=== PATIENT | female | born 1975 | race Caucasian/White ===

== ENCOUNTER 2016-11-01 00:35 | Observation (INO) ==
[2016-11-01] MEDS ORDERED: Aspirin 81 MG TAB.CHEW PO ONE (01:12)
[2016-11-01] MEDS ORDERED: Ondansetron 4 MG/2 ML VIAL IVP ONE (01:12)
[2016-11-01] MEDS ORDERED: 0.9 % Sodium Chloride 500 ML IVC ONE (01:12)
[2016-11-01] MEDS ORDERED: *HR* Morphine 2 MG/ML SYRINGE IVP ONE (01:12)
--- NOTE | 2016-11-01 01:14 | Emergency Department Note ---
Disposition Clinical Impression: Chest pain Qualifiers: Chest pain type: precordial pain Qualified Code(s): R07.2 - Precordial pain Disposition: Admitted As Inpatient Condition: Fair Referrals: Unassigned,Provider [Primary Care Provider] - Forms: ED Satisfaction Letter Chest Pain HPI - General Chief Complaint: ED Chest Pain Stated Complaint: chest pain/back pain Time Seen by Provider: 11/01/16 00:52 Source: patient, family Mode of arrival: private vehicle Limitations: no limitations Vital Signs Reviewed: Yes Nursing Notes Reviewed: Yes - History of Present Illness Pt complaint: chest pain Onset (ago): day(s) (4) Duration: intermittent Onset: during rest Pain Location: substernal Severity: moderate Severity scale (1-10): 4 Quality: heaviness Pain Radiation: back (upper) Improves with: nothing Worsens with: other (certain positions make back hurt more, but nothing makes chest pain worse) Context: other (intermittent chest heaviness since . This evening pain was worse and radiated into upper back. had trouble getting to sleep, then pain in chest woke her up. Fam hx of CAD / AR - Father had first AR in his 40's) Associated symptoms: Reports: nausea. Denies: vomiting, diaphoresis, dyspnea, sense of impending doom, syncope, palpitations (Hx of sinus tachycardia - has been worked up for this. Takes Propranolol QAM which controls it.), fever, cough , leg swelling Treatments prior to arrival chest pain: none - Related Data On Oral Contraceptives: No Allergies Allergy/AdvReac Type Severity Reaction Status Date / Time Stimulants AdvReac See Uncoded 11/01/16 00:39 Comments All systems ED: reviewed and negative except as stated. Constitutional: Denies: fever, chills, weakness, night sweats Cardiovascular: Reports: as per HPI, chest pain. Denies: palpitations, dyspnea on exertion, orthopnea, edema, syncope Respiratory: Denies: cough, dyspnea, wheezes, hemoptysis, stridor, sputum production Gastrointestinal: Reports: abdominal pain ("A little discomfort" in epigastrium) , nausea. Denies: vomiting, diarrhea, constipation, hematemesis, melena, hematochezia Genitourinary: Denies: dysuria Musculoskeletal: Reports: as per HPI, back pain. Denies: neck pain, joint swelling, arthralgia, myalgia Integumentary: Denies: rash, lesions Neurological: Denies: headache, weakness, numbness, paresthesias, confusion, abnormal gait, vertigo Hematological/Lymphatic: Denies: easy bleeding, easy bruising Chest Pain PMH - Past Medical History Medical history: Reports: kidney stones, other (sinus tachycardia) Psychiatric history: Reports: anxiety LMP comments: current - Social History Smoking Status: Never smoker Alcohol use: Reports: none Drug use: Reports: none Physical Exam - General Limitations: no limitations General appearance: alert, in no apparent distress - Head Head exam: atraumatic, normocephalic, normal inspection - Eye Eye exam: Present: normal appearance, PERRL, EOMI. Absent: scleral icterus, conjunctival injection, periorbital swelling - ENT ENT exam: mucous membranes moist - Neck Neck exam: Present: normal inspection, full ROM, trachea midline - Chest Chest inspection: Present: normal inspection, symmetric chest wall rise. Absent : tenderness - Respiratory Respiratory exam: Present: normal lung sounds bilaterally. Absent: respiratory distress, wheezes, stridor, accessory muscle use, prolonged expiratory phase - Cardiovascular Cardiovascular exam: Present: normal rhythm, tachycardia, normal heart sounds - Abdominal Exam Abdominal exam: Present: soft, Non-Tender, normal bowel sounds. Absent: distention, guarding, rebound, rigidity, organomegaly, Bah's sign, tenderness at McBurney's Point, mass, pulsatile mass - Extremities Exam Extremities exam: Present: normal inspection, full ROM, normal capillary refill. Absent: pedal edema, calf tenderness - Back Exam Back exam: Present: normal inspection, full ROM. Absent: tenderness, CVA tenderness (R), CVA tenderness (L) - Neurological Exam Neurological exam: Present: alert, oriented X3, CN II-XII intact, normal gait - Psychiatric Psychiatric exam: Present: normal affect, normal mood - Skin Skin exam: Present: warm, dry, intact, normal color Course Course Narrative: Patient presents for evaluation of chest pain. It has been intermittent . It waxes and wanes in intensity and duration. It is not exertional. Sometimes it radiates into the upper back. This evening it was worse than usual and made it difficult for her to fall asleep. Later she awoke with increased midsternal pressure and pain and also had associated nausea. This is what prompted her to come to the ER. She has family history of urinary artery disease in her father who had his first AR when he was in his 40s. Patient's EKG is normal. Chest x-ray is normal. Labs are normal with the exception of a mildly elevated glucose. She received morphine, which helped a little with the pain. It is now down to a two out of 10. The case was discussed with Dr. Cherry. He has seen the patient and agrees with the assessment and plan to admit the patient for a rule out. Hospitalist has been paged. Vital Signs Temperature 98.4 F 11/01/16 00:36 Pulse Rate 117 11/01/16 00:36 Respiratory Rate 16 11/01/16 00:36 Blood Pressure 157/91 11/01/16 00:36 O2 Sat by Pulse Oximetry 100 11/01/16 00:36 Temperature 98.4 F 11/01/16 00:36 Pulse Rate 86 11/01/16 01:25 Respiratory Rate 18 11/01/16 01:25 Blood Pressure 124/78 11/01/16 01:25 O2 Sat by Pulse Oximetry 98 11/01/16 01:25 Oxygen Delivery Oxygen Delivery Room Air Chest Pain - Medical Records Medical records reviewed: Yes I reviewed the patient's medical records. - Lab Data Lab results reviewed: Yes I reviewed the patient's lab results. Lab results narrative: Laboratory Last Values WBC 7.0 K/mcL (4.3-11.1) 11/01/16 01:15 RBC 4.24 M/mcL (3.82-4.97) 11/01/16 01:15 Hgb 11.9 g/dL (11.5-15.4) 11/01/16 01:15 Hct 35.5 % (35.3-44.9) 11/01/16 01:15 MCV 83.7 fL (83.0-100.0) 11/01/16 01:15 MCH 28.1 pg (28.0-33.3) 11/01/16 01:15 MCHC 33.5 g/dL (31.6-35.5) 11/01/16 01:15 RDW 13.9 % (11.5-14.5) 11/01/16 01:15 Plt Count 285 K/mcL (140-400) 11/01/16 01:15 MPV 11.1 fL (9.4-12.4) 11/01/16 01:15 Immature Gran % 0.3 % (0-4) 11/01/16 01:15 Seg Neutrophils % 47.8 % 11/01/16 01:15 Lymphocytes % 40.2 % 11/01/16 01:15 Monocytes % 10.3 % 11/01/16 01:15 Eosinophils % 1.1 % 11/01/16 01:15 Basophils % 0.3 % 11/01/16 01:15 Neutrophils # 3.3 K/mcL (1.6-8.9) 11/01/16 01:15 Lymphocytes # 2.8 K/mcL (0.6-4.6) 11/01/16 01:15 Monocytes # 0.7 K/mcL (0.0-1.3) 11/01/16 01:15 Eosinophils # 0.1 K/mcL (0.0-0.6) 11/01/16 01:15 Basophils # 0.0 K/mcL (0.0-0.2) 11/01/16 01:15 PT 11.3 Seconds (9.4-12.1) 11/01/16 01:15 INR 1.0 11/01/16 01:15 APTT 27.2 Seconds (26.0-36.0) 11/01/16 01:15 D-Dimer 367 ng/mLFEU (0-500) 11/01/16 01:15 Sodium 137 mEq/L (136-145) 11/01/16 01:15 Potassium 3.5 mEq/L (3.5-4.5) 11/01/16 01:15 Chloride 103 mEq/L (98-109) 11/01/16 01:15 Carbon Dioxide 23 mEq/L (19-29) 11/01/16 01:15 BUN 18 mg/dL (7-20) 11/01/16 01:15 Creatinine 0.82 mg/dL (0.57-1.11) 11/01/16 01:15 Est GFR ( Amer) > 60 (> 60) 11/01/16 01:15 Est GFR (Non-Af Amer) > 60 (> 60) 11/01/16 01:15 BUN/Creatinine Ratio 22 (6-26) 11/01/16 01:15 Glucose 113 mg/dL (70-99) H 11/01/16 01:15 Calculated Osmolality 287 (280-300) 11/01/16 01:15 Calcium 10.8 mg/dL (8.6-10.8) 11/01/16 01:15 Total Bilirubin 0.9 mg/dL (0.2-1.2) 11/01/16 01:15 Direct Bilirubin 0.3 mg/dL (0.0-0.5) 11/01/16 01:15 Indirect Bilirubin 0.6 mg/dL (0.0-1.2) 11/01/16 01:15 AST 17 Units/L (5-34) 11/01/16 01:15 ALT 17 Units/L (0-55) 11/01/16 01:15 Alkaline Phosphatase 38 Units/L (38-126) 11/01/16 01:15 Troponin I 0.00 ng/mL (0-0.03) 11/01/16 01:15 Serum Total Protein 7.8 g/dL (6.0-8.3) 11/01/16 01:15 Albumin 4.5 g/dL (3.5-5.0) 11/01/16 01:15 Globulin 3.3 g/dL (2.4-3.5) 11/01/16 01:15 Albumin/Globulin Ratio 1.4 (1.1-2.2) 11/01/16 01:15 Lipase 30 Units/L (8-78) 11/01/16 01:15 Result diagrams: 11/01/16 01:15 11/01/16 01:15 - Radiology Data Radiology results reviewed: Yes I reviewed the patient's radiology results. Chest X-Ray 11/01/16 01:12 IMPRESSION: Negative portable chest. D/ / Bret Lee MD / Bret Lee MD Interpreting Provider: Bret Lee MD - EKG Data EKG attestation: Yes I reviewed and interpreted this EKG. EKG shows normal: sinus rhythm Rate: normal Rhythm: NSR [place]/QRS: normal When compared to previous EKG there are: no significant changes Interpretation: no acute changes, normal EKG Heart Score - Score History: Moderately Suspicious EKG: Normal Age: Less than 45 Risk Factors: 1-2 risk factors Troponin: Less than normal limit HEART Score Total: 2 Attestation Statement - Attestation Attestation: I, Tyler Cherry MD, personally evaluated this patient and discussed their management with the midlevel provicer, PAC/CAMOUFLAGE ASSEMBLER. I reviewed the midlevel provider 's note and agree with the documented findings, medical decision making, and plan of care. 40-year-old female with history of tachycardia presents to the emergency department with a complaint of having some intermittent mid upper chest pains over the past 3-4 days with significantly getting worse and tonight she awoke with severe pain in the upper substernal region radiating through to her back. Some nausea with the pain. No diaphoresis or shortness of breath. No cough or fever. No abdominal pain. On examination patient is a well-developed well-nourished well-appearing female in no acute distress. She is alert and oriented 3. There is no cyanosis or diaphoresis. Chest is nontender to palpation. Breath sounds are clear and equal bilaterally. Heart regular rate and rhythm. Abdomen is soft and nontender with normal bowel sounds. EKG shows a normal sinus rhythm with no acute changes. Chest x-ray negative. Labs reviewed. Troponin normal. The hospitalist, Dr. Owen, was consulted and accepted admission of the patient.
[2016-11-01 01:26] LABS: Basophils % 0.3 %; Eosinophils # 0.1 K/mcL (0.0-0.6); Eosinophils % 1.1 %; Hematocrit 35.5 % (35.3-44.9); Hemoglobin 11.9 g/dL (11.5-15.4); Immature Granulocytes % 0.3 % (0-4); Lymphocytes # 2.8 K/mcL (0.6-4.6); Lymphocytes % 40.2 %; Mean Corpuscular HGB Conc 33.5 g/dL (31.6-35.5); Mean Corpuscular Hemoglobin 28.1 pg (28.0-33.3); Mean Corpuscular Volume 83.7 fL (83.0-100.0); Mean Platelet Volume 11.1 fL (9.4-12.4); Monocytes # 0.7 K/mcL (0.0-1.3); Monocytes % 10.3 %; Neutrophils # 3.3 K/mcL (1.6-8.9); Platelet Count 285 K/mcL (140-400); Red Blood Count 4.24 M/mcL (3.82-4.97); Red Cell Distribution Width 13.9 % (11.5-14.5); Segmented Neutrophils % 47.8 %
[2016-11-01 01:33] LABS: Prothrombin Time 11.3 Seconds (9.4-12.1)
[2016-11-01 01:36] LABS: Activated Partial Thrombo Time 27.2 Seconds (26.0-36.0)
[2016-11-01 01:45] LABS: Alanine Aminotransferase 17 Units/L (0-55); Albumin 4.5 g/dL (3.5-5.0); Albumin/Globulin Ratio 1.4 (1.1-2.2); Alkaline Phosphatase 38 Units/L (38-126); Aspartate Amino Transferase 17 Units/L (5-34); BUN/Creatinine Ratio 22 (6-26); Bilirubin,Direct 0.3 mg/dL (0.0-0.5); Bilirubin,Indirect 0.6 mg/dL (0.0-1.2); Bilirubin,Total 0.9 mg/dL (0.2-1.2); Blood Urea Nitrogen 18 mg/dL (7-20); Calcium 10.8 mg/dL (8.6-10.8); Carbon Dioxide 23 mEq/L (19-29); Chloride 103 mEq/L (98-109); Globulin 3.3 g/dL (2.4-3.5); Glucose 113 mg/dL (70-99); Lipase 30 Units/L (8-78); Osmolality,Calculated 287 (280-300); Potassium 3.5 mEq/L (3.5-4.5); Sodium 137 mEq/L (136-145); Total Protein 7.8 g/dL (6.0-8.3); eGFR For African Americans > 60 (> 60); eGFR For Non-African Americans > 60 (> 60)
[2016-11-01] MEDS ORDERED: *HR* Morphine 2 MG/ML SYRINGE IV ONE (02:33)
[2016-11-01] MEDS ORDERED: Acetaminophen 325 MG TABLET PO PRN (03:56)
[2016-11-01] MEDS ORDERED: Nitroglycerin 0.4 MG TAB.SUBL SL PRN (03:58)
--- NOTE | 2016-11-01 04:02 | Internal Med History&Physical ---
<Huber Francois - Last Filed: 11/01/16 04:06> Date of Encounter: 11/01/16 Time of Encounter: 03:00 Assessment and Plan (1) Chest pain Current visit: Yes Status: Acute - Intermittent mid-sternal pressure-like chest pain radiating to the mid back. - Differential include esophageal spasm (possible given it's aggravated by position change and after eating), GERD (doubt given patient reports the pain is different from her usual acid reflex), costochondritis (less likely given pain is not reproducible on palpation). - Doubt cardiac chest pain given negative troponin and no ischemic change on EKG. But given her family history (father with first VT in age late 40s), will have more cardiac chest pain work-up including trending troponin and nuclear stress test (if troponin remains negative x3). - Will check TSH, lipid panel and Hgb A1C as risk stratification. - Continue aspirin. - Nitroglyerin prn pain. - Patient may benefit from outpatient GI work-up if stress test is negative. Qualifiers: Chest pain type: unspecified Qualified Code(s): R07.9 - Chest pain, unspecified (2) Anxiety Current visit: Yes Status: Acute - Patient was on propranolol at home for anxiety-associated palpitation. - Will hold propranolol for now so it will not interfere planned nuclear stress test. (3) GERD (gastroesophageal reflux disease) Current visit: Yes Status: Chronic - Start omeprazole. Qualifiers: Esophagitis presence: esophagitis presence not specified Qualified Code(s) : K21.9 - Gastro-esophageal reflux disease without esophagitis (4) Asthma Current visit: Yes Status: Chronic - Bronchodilator prn dyspnea/wheezes Qualifiers: Asthma severity: unspecified severity Asthma complication type: uncomplicated Qualified Code(s): J45.909 - Unspecified asthma, uncomplicated (5) DVT prophylaxis Current visit: Yes Status: Acute - SQ heparin. Internal Medicine - H&P: HPI Chief complaint: Chest pain Admitted From: Emergency Dept Plans for Post Hospital Care: Home History of present illness: Ms. Lobato is a 40 year old female with PMH of GERD, asthma, palpitation from anxiety and history of IBS and kidney stone s/p laser lithotripsy. Patient presented with complaint of intermittent midsternal chest pain radiating to mid back since 10/28. Patient describes it as pressure-like dull pain aggravated by lying down & right after eating and alleviated by sitting up. The pain seems to increase in frequency and is associated with upset stomach and nausea so eventually patient came to [facility] ED. Patient never has this kind of pain before and denies recent trauma/injury. Patient denies shortness of breath, cough, diaphoresis, lightheadedness, syncope, edema, dysphagia, vomiting, diarrhea, melena, hematochezia, dysuria, hematuria. Patient reports being healthy most of time and not barely taking any medications except propranolol for her palpitation from anxiety. Patient reports having Holter monitoring in the past but no major abnormality noted. She also had echo done 7 years and no significant valvular abnormality reported. Patient never has stress test done before. Patient does have cardiac family history with her father had first VT at age late 40s. Patient never smokes and denies being diagnosed with HTN, hyperlipidemia or diabetes, even though both of her parents have diabetes. Patient is full code. In ED, patient received full dose of aspirin and one dose of morphine. Past Med Surg Social Fam HX - Past Medical History Medical history: asthma, GERD, kidney stones, other (sinus tachycardia) Psychiatric history: anxiety - Past Surgical History Surgical History: ureteral stent (Laser lithotripsy with stent) - Social History Smoking Status: Never smoker Alcohol use: none Drug use: none - Family History Father Living Status: Still Living Hx Family Cardiac Disorders: Yes (First VT at age late 40s.) Hx Family Endocrine Disorder: Yes (diabetes) Mother Living Status: Still Living Hx Family Endocrine Disorder: Yes (diabetes) Internal Medicine - H&P: Meds Propranolol HCl 10 mg PO QDPC 11/01/16 [History] Allergies Stimulants Adverse Reaction (Uncoded 11/01/16 00:39) See Comments All Systems PM: A 10-system review of systems was performed and is negative for pertinent findings except as documented above in the HPI. - Constitutional Constitutional: anorexia, no chills, no fever(s), no weight gain, no weight loss - EENT Eyes: no change in vision Ears: no decreased hearing Nose, mouth and throat: no dysphagia, no odynophagia - Cardiovascular Cardiovascular ROS IM: as per HPI, chest pain, palpitations (Patient feels it's more from her anxiety rather than chest pain), no edema, no lightheadedness, no syncope - Respiratory Respiratory: no cough, no dyspnea, no hemoptysis - Gastrointestinal Gastrointestinal: abdominal pain (epigastric discomfort), nausea, no diarrhea, no hematochezia, no melena, no vomiting - Genitourinary Genitourinary: no difficulty urinating, no dysuria, no hematuria - Musculoskeletal Musculoskeletal ROS IM: no arthralgias, no myalgias - Integumentary Integumentary IM: no pruritus, no rash - Neurological Neurological ROS: no focal weakness, no numbness, no tingling - Hematologic/Lymphatic Hematologic/Lymphatic: no easy bleeding, no easy bruising - Constitutional Vitals: Temp Pulse Resp BP Pulse Ox 98.0 F 85 14 112/68 97 11/01/16 03:44 11/01/16 03:44 11/01/16 03:44 11/01/16 03:44 11/01/16 03:44 General appearance: Present: cooperative, A&O X 3, no acute distress, answers questions appropriately - Head Head exam: Present: atraumatic, normocephalic - Eye Eye exam: Present: EOMI, PERRL, conjuntiva pink, sclera anicteric - Neck Neck exam general surgery: Present: supple, trachea midline. Absent: lymphadenopathy - Respiratory Respiratory exam: Present: CTAB. Absent: accessory muscle use, chest wall tenderness (The chest pain is NOT reproducible on palpation. ), rales, rhonchi, wheezes - Cardiovascular Cardiovascular exam: Present: RRR, +S1, +S2. Absent: diastolic murmur, gallop, rubs, systolic murmur - GI/Abdominal GI/Abdominal exam: Present: normal bowel sounds, soft, no peritoneal signs. Absent: distended, tenderness (No Bah's sign.) - Extremities Exam Extremities exam: Present: warm, radial pulses palpable and symetrical. Absent : calf tenderness, cyanotic, pedal edema - Neurological Exam Neurological exam: Present: CN II-XII intact, oriented X3, no focal deficits. Absent: pronater drift, facial droop, speech deficit - Skin Skin exam: Present: dry, intact, warm Internal Med - H&P Results - Labs CBC & Chem 7: 11/01/16 01:15 11/01/16 01:15 Labs: Short CBC 11/01/16 Range/Units 01:15 WBC 7.0 (4.3-11.1) K/mcL Hgb 11.9 (11.5-15.4) g/dL Hct 35.5 (35.3-44.9) % Plt Count 285 (140-400) K/mcL Neutrophils # 3.3 (1.6-8.9) K/mcL BMP 11/01/16 Range/Units 01:15 Sodium 137 (136-145) mEq/L Potassium 3.5 (3.5-4.5) mEq/L Chloride 103 (98-109) mEq/L Carbon Dioxide 23 (19-29) mEq/L BUN 18 (7-20) mg/dL Creatinine 0.82 (0.57-1.11) mg/dL Glucose 113 H (70-99) mg/dL Calcium 10.8 (8.6-10.8) mg/dL Cardiac Enzymes 11/01/16 Range/Units 01:15 Troponin I 0.00 (0-0.03) ng/mL Liver Function 11/01/16 Range/Units 01:15 Total Bilirubin 0.9 (0.2-1.2) mg/dL Direct Bilirubin 0.3 (0.0-0.5) mg/dL AST 17 (5-34) Units/L ALT 17 (0-55) Units/L Alkaline Phosphatase 38 (38-126) Units/L Albumin 4.5 (3.5-5.0) g/dL - EKG Data -: EKG Interpreted by Myself EKG shows normal: sinus rhythm Rate: normal - EKG Data Prior EKG available for review: yes When compared to previous EKG: there is no significant change EKG comments: 11/01/16 04:27 Normal sinus rhythm. No significant ischemic change noted. - Impressions Impressions Chest X-Ray 11/01/16 01:12 IMPRESSION: Negative portable chest. D/ / Bret Lee MD / Bret Lee MD Interpreting Provider: Bret Lee MD - VTE Reasons for not Prescribing Prophylaxis: Treatment not Indicated - Low risk for VTE <Kiet Parra - Last Filed: 11/01/16 08:21> Date of Encounter: 11/01/16 Internal Medicine - H&P: HPI History of present illness: Ms. Lobato is a 40 year old female All Systems PM: A 10-system review of systems was performed and is negative for pertinent findings except as documented above in the HPI. - Constitutional Vitals: Temp Pulse Resp BP Pulse Ox 98.2 F 84 17 113/70 98 11/01/16 07:13 11/01/16 07:13 11/01/16 07:13 11/01/16 07:13 11/01/16 07:13 Internal Med - H&P Results - Labs CBC & Chem 7: 11/01/16 01:15 11/01/16 01:15 Labs: Cardiac Enzymes 11/01/16 Range/Units 06:45 Troponin I 0.00 (0-0.03) ng/mL - Attending Attestation I performed history and physical examination of the patient and discussed management with the Resident. I reviewed the Residents note and agree with documented findings and plan of care. 40 year old female with PMH of GERD, asthma, palpitation from anxiety and family h/o CAD in her father at 50 yrs. she presents with intermittent substernal pain, with radiation to the back. Unrelated to exertion. Sometimes worse, when she lies down. No recent injury to chest. O/E: Neck in distress. No chest wall tenderness. Lungs clear to auscultation. Cardiac regular rate and rhythm. EKG personally reviewed by me shows sinus rhythm with no acute ST changes. Chest x-ray reported negative. Troponin negative. A/P: Atypical chest pain: Cardiac stress test - if negative, she may need outpatient w/u with philosophy faculty for possible esophagitis. Emperically start PPI and Carafate.
[2016-11-01] MEDS ORDERED: Ipratropium/Albuterol Neb 3 ML IH PRN (04:32)
[2016-11-01 04:43] LABS: Chol/HDL Ratio 3.6 (0-4.9); Cholesterol 186 mg/dL (< 200); HDL Cholesterol 51 mg/dL (40-59); LDL Cholesterol,Calculated 116 mg/dL (0-99); Triglycerides 93 mg/dL (< 150)
[2016-11-01 05:04] LABS: Thyroid Stimulating Hormone 2.155 mcIU/mL (0.350-4.840)
[2016-11-01 05:05] LABS: Hemoglobin A1C 5.6 %
[2016-11-01] MEDS ORDERED: *HR* Heparin 5,000 UNIT/ML VIAL SQ SCH (06:00)
[2016-11-01] MEDS ORDERED: Pantoprazole 40 MG VIAL IVP SCH (09:00)
[2016-11-01] MEDS ORDERED: Aspirin 81 MG TAB.CHEW PO SCH (09:00)
[2016-11-01 11:04] VITALS: BP 112/79
--- NOTE | 2016-11-01 11:17 | Nuclear Medicine Stress Report ---
Exercise Nuclear Stress Name: Massiel Lobato Date of Study: 11/01/2016 Date: 1975 Ht: 62.0 in Medical Record#: [id number] Age: 40 Wt: 120.0 lb Gender: Female Order #: [id number] Location: [facility] Room: [facility] Supervising Provider: Mayela Bergeron CNP Reading Physician: Catalino Finn DO, FACC, FASNC Ordering Physician: Radha Long CNP Primary Care Physician: Gwen Plunkett DO Stress Technologist: Leidy Ny LOGGING OPERATIONS INSPECTOR, CCT Mortgage Accounting Clerk: Joe Oquendo Indications: Chest Pain Impression: Exercise ECG is negative for ischemia. Gated EF = 74%. Perfusion imaging was negative for ischemia or infarct. Stress Test Summary: Stress Test Type: Treadmill Protocol: [place] Baseline Information: Initial Heart Rate: 87 Blood Pressure: 110/64 Stress Information: Stress Time: 7 min 00 sec Test Terminated Due to (primary): Fatigue Maximum Blood Pressure: 130/82 Maximum Heart Rate: 181 Percent Maximum Heart Rate Achieved: 101 Double Product: [id number] METS Reached: 10.1 Symptoms: Fatigue, No chest symptoms Nuclear Summary: SPECT myocardial perfusion imaging using Tc99m Sestamibi given intravenously was performed at rest and following cardiac stress testing. The resting images were obtained following initial dose of 9.3 mCi. Following stress an additional dose of 35.8 mCi was given at peak exercise or 30 seconds post regadenoson infusion. Medication Given: Time Medication Dose Units Route Findings: Stress Note * Resting ECG demonstrated normal sinus rhythm. * No baseline arrhythmias were noted. * Exercise ECG is negative for ischemia. * No arrhythmias were noted during stress. * The exercise capacity was average. * Patient had no chest pain during stress. Hemodynamic responses * Normal hemodynamic responses to exercise. Study Quality * Study quality is good. Gated EF % * Gated EF = 74%. Left Ventricle * The left ventricle is not dilated. * LVEDV = 57 mL. NORMALS * Normal wall motion. * Normal segmental perfusion in rest. * Normal segmental perfusion in stress. TID * No evidence of transient ischemic dilatation. TID ratio * TID ratio = 1.03. Lung Uptake * There is no evidence of increase lung uptake. Updated by Catalino Finn DO, FACC, FASE, FASNC on 11/01/2016 11:09:02 AM electronically signed on 11/01/2016 11:10:38 AM with status of Final
[2016-11-01] MEDS ORDERED: Sucralfate 1 GM TABLET PO SCH (11:30)
--- NOTE | 2016-11-01 12:02 | Electrocardiograph Report ---
[place] [id number] Test Date: 2016-11-01 Pat Name: Massiel Lobato Department: 105 Room: 3B Gender: F Pipeline Integrity Engineer: BROCK : 1975 Requested By: Andree Brock Order Number: [id number] Reading MD: Michael Smith Measurements Intervals [place] Rate: 95 P: 63 AR: 129 QRS: 41 QRSD: 79 T: 54 QT: 317 QTc: 370 Interpretive Statements SINUS RHYTHM Electronically Signed On 11-01-2016 12:00:56 EDT by Michael Smith
--- NOTE | 2016-11-01 13:35 | Discharge Summary ---
Date of Encounter: 11/01/16 Time of Encounter: 13:15 - Discharge Diagnosis (1) Chest pain Priority: Primary Status: Acute Comments: Patient reports intermittent chest pain since . The duration and level of pain is not constant and is changing. There is no relation to exertion or food. She reports that during her stress test it actually got better and she has noticed that the pain is worse when she lies down, with some radiation into her back. Last night she states that it became worse than normal and made it difficult for her to fall asleep. She awakened at about 2 AM with increased midsternal pressure and pain and nausea. EKG was normal sinus rhythm. Chest x-ray negative for any acute process. Troponins were negative 3 Labs are within normal limits. Chest pain is not reproducible with movement, deep inspiration, or palpation. Pain is most likely due to GERD symptoms. She is not a smoker, does not drink a lot of caffeine, nor does she eat a lot of spicy food or fatty food. Patient has been both report that she eats mostly healthful foods. She says that she has been nauseated and does not have any appetite. He says she primarily drinks water, she does not drink soda or coffee. We discussed some diet changes. She reports improvement with Carafate and Protonix. Qualifiers: Chest pain type: unspecified Qualified Code(s): R07.9 - Chest pain, unspecified (2) Anxiety Priority: Secondary Status: Chronic Comments: Patient states that she takes propranolol for anxiety. Continue medication at home. (3) GERD (gastroesophageal reflux disease) Priority: Secondary Status: Chronic Comments: Most likely cause of pain based on history and symptoms. Cardiac workup negative. She will be sent home on omeprazole and Carafate. Follow-up with primary care physician. Qualifiers: Esophagitis presence: esophagitis presence not specified Qualified Code(s) : K21.9 - Gastro-esophageal reflux disease without esophagitis (4) Asthma Priority: Secondary Status: Chronic Comments: Well-controlled. Lungs are clear. Continue home medications. Qualifiers: Asthma severity: unspecified severity Asthma complication type: uncomplicated Qualified Code(s): J45.909 - Unspecified asthma, uncomplicated (5) DVT prophylaxis Priority: Secondary Status: Acute Comments: Heparin subcutaneous. - Discharge Medications Prescriptions: Omeprazole 20 mg PO DAILY #30 tablet. Sucralfate [Carafate] 1 gm PO QIDAC #120 tablet Home Medications: Omeprazole 20 mg PO DAILY #30 tablet. 11/01/16 [Rx] Propranolol HCl 10 mg PO QDPC 11/01/16 [History] Sucralfate [Carafate] 1 gm PO QIDAC #120 tablet 11/01/16 [Rx] Allergies/Adverse Reactions: Allergies Stimulants Adverse Reaction (Uncoded 11/01/16 12:52) Palpitations Procedures/tests Complete & Pending: Procedures Performed prior 72 hours Category Date Time Status NM vito perf SPECT multi [NM] Routine Exams 11/01/16 04:00 Taken SP exercise nuclear stress Routine Y 11/01/16 07:00 Completed Date of admission: 11/01/16 03:14 Primary care physician: Gabriela Wilkinson Discharging clinician: Radha Long Anticipated date of discharge: 11/01/16 - Patient Status Disposition: Home, Self-Care Condition: Good Functional capacity at discharge: independent ambulation Overall status at discharge: patient is back to baseline - Discharge Instructions Follow Up With: Gwen Plunkett DO [Primary Care Provider] - Additional Instructions: Follow up with Dr. Plunkett in the next week or so for a follow up and refills on your new medications. I will let her see you and determine if you need a GI follow up after you have had the Omeprazole and Carafate to see how they are working Continue your Propranolol Return to the ER if you have any other problems or concerns, or if you have any new or worsening symptoms. - Diet and Activity Activity: resume usual activities as tolerated Diet: advance to your usual diet Hospital course: Ms. Lobato is a 40 year old female with a limited history of asthma, anxiety, GERD, and renal calculi who presented to the emergency room for new onset chest pain. She describes it as pressure-like midsternal pain is aggravated by lying down right after eating and alleviated by sitting up. She actually says the pain gets better when she is up moving and was almost completely relieved by her stress test today. Chest pain made it difficult for her to fall asleep, then awakened her at 2 AM. She is concerned due to paternal history of DC in his 40s. The onset of the pain was 4 days ago. She denies shortness of breath dizziness, syncope, peripheral edema, vomiting, diarrhea, cough. She is a nonsmoker and eats primarily very healthy foods. She does not consume excess caffeine or fatty foods or spicy foods. The pain is not reproducible to palpation or with movement or deep inspiration. Troponins were negative 3. EKG showed no signs of ischemia. Stress test was also negative for ischemia or infarct. Gated EF is 74%. Patient reports nausea for 2 days. She did get some relief of the pain from omeprazole and Carafate that was given to her prior to discharge. All of her labs are within normal limits. She is alert and oriented gait is steady she is neurologically intact. Patient is stable for discharge. - Time Spent with Patient Total time spent providing and/or coordinating discharge services: - Constitutional Vitals: Temp Pulse Resp BP Pulse Ox 98.1 F 94 17 112/79 98 11/01/16 11:03 11/01/16 11:03 11/01/16 11:03 11/01/16 11:03 11/01/16 11:03 General appearance: Present: cooperative, A&O X 3, no acute distress, answers questions appropriately - Head Head exam: Present: normal inspection - Eye Eye exam: Present: normal appearance, nystagmus, conjuntiva pink - ENT ENT exam: Present: mucous membranes moist, normal exam, normal external ear exam - Neck Neck exam general surgery: Present: normal inspection. Absent: tenderness - Respiratory Respiratory exam: Present: CTAB. Absent: chest wall tenderness, decreased breath sounds, rales, respiratory distress, rhonchi, wheezes - Cardiovascular Cardiovascular exam: Present: RRR, +S1, +S2. Absent: bradycardia, diastolic murmur, systolic murmur, tachycardia - GI/Abdominal GI/Abdominal exam: Present: normal bowel sounds, soft. Absent: distended, firm , guarding, hepatomegaly, splenomegaly, tenderness - Extremities Exam Extremities exam: Present: normal capillary refill, warm, radial pulses palpable and symetrical. Absent: pedal edema, tenderness - Neurological Exam Neurological exam: Present: alert, oriented X3, no focal deficits, strengths equal and symetr throughout. Absent: facial droop, speech deficit - VTE Reasons for not Prescribing Prophylaxis: Treatment not Indicated - Low risk for VTE
== END 2016-11-01 15:04 | disposition home or self-care (01) ==
LOC: EMEROO 00:35 → 3BNU 00:35
PROVIDERS: ADMIT Internal Medicine; ATTEND Registered Nurse